=== PATIENT | female | born 1990 | race Caucasian/White ===

== ENCOUNTER 2017-10-30 18:36 | Inpatient (IN) | payer BC ==
[2017-10-30] MEDS ORDERED: Sodium Chloride 0.9% 10 ML Syringe FLUSH PRN (19:10)
[2017-10-30] MEDS ORDERED: Nalbuphine 20 MG/1 ML Amp IVPUSH PRN (19:10)
[2017-10-30] MEDS ORDERED: Ondansetron 4 MG/2 ML SDV IVPUSH PRN (19:10)
[2017-10-30] MEDS ORDERED: Lidocaine 1% 50 ML MDV INJECT ONE (19:10)
[2017-10-30] MEDS: Lactated Ringers 1,000 ML IV SCH ×4 (19:15→22:48)
[2017-10-30] MEDS ORDERED: Oxytocin/Lactated Ringers 10 UNIT/1,000 ML BAG IV SCH (19:15)
--- NOTE | 2017-10-30 19:32 | PCM.LDHP ---
L&D History of Present Illness - General Date of Service: 10/30/17 Admit Problem/Dx: Patient Status Order with Admit Dx/Problem 10/30/17 19:11 Patient Status [ADT] Routine Admission Diagnosis/Problem Admission Diagnosis/Problem 10/30/17 19:33 27 yo G1 at 37 weeks 6 days with active labor. Dates based on 15 week ultrasound. no LOF. Good FM. No vaginal bleeding. contractions for greater than 18 hours, strong contractions for the last 4 hours. GBS negative, O positive Zika exposure-Pt tested negative. elevated blood pressures in , preeclampsia labs normal. Source of Information: Patient History Limitations: Reports: No Limitations - History of Present Illness Location, : Reports: Abdomen Quality: Reports: Pressure Severity: Moderate Improves with: Reports: None Worsens with: Reports: None Past Medical History Genitourinary History: Reports: UTI, Recurrent LMP (Approximate): Social & Family History - Family History Family Medical History: Noncontributory H&P Review of Systems - Review of Systems: Review Of Systems: See Below Gastrointestinal: Reports: Abdominal Pain Genitourinary: Reports: No Symptoms L&D Exam - Exam Exam: See Below - OB Specific Contraction Intensity: Moderate to Strong Movement: Active Heart Tones: Present Heart Tones per Min: 150 Heart Rate (FHR) Variability: Moderate (6-25 bmp) Presentation: Vertex Estimated Weight: 3500 - [place] Score [place] Score Cervix Position: Anterior [place] Score Consistency: Soft [place] Score Effacement: >80% [place] Score Dilation: > 5 cm [place] Score Infant's Station: -1 ,0 [place] Score Total: 12 - Exam General: Alert, Oriented Genitourinary: Normal external exam Extremities: No Pedal Edema Skin: Warm, Dry, Intact Problem List Initiated/Reviewed/Updated: Yes Orders Last 24hrs: Active Orders 24 hr Category Date Time Status Patient Status [ADT] Routine ADT 10/30/17 19:11 Active Activity as Tolerated [RC] PFP Care 10/30/17 19:11 Active Communication Order [RC] ASDIRECTED Care 10/30/17 19:11 Active Heart Tones [RC] ASDIRECTED Care 10/30/17 19:11 Active Notify Provider [RC] PFP Care 10/30/17 19:11 Active Notify Provider [RC] PRN Care 10/30/17 19:11 Active Peripheral IV Care [RC] . DIRECTED Care 10/30/17 19:11 Active Vital Signs [RC] PER UNIT ROUTINE Care 10/30/17 19:11 Active CBC W/O DIFF,HEMOGRAM [HEME] Stat Lab 10/30/17 19:10 Ordered Lactated Ringers [Ringers, Lactated] 1,000 ml Med 10/30/17 19:15 Ordered IV ASDIRECTED Lidocaine 1% [Xylocaine 1%] Med 10/30/17 19:10 Once 20 ml INJECT ONETIME ONE Nalbuphine [Nubain] Med 10/30/17 19:10 Ordered 10 mg IVPUSH Q2H PRN Ondansetron [Zofran] Med 10/30/17 19:10 Ordered 4 mg IVPUSH Q4H PRN Oxytocin/Lactated Ringers [Pitocin in LR 10 Units/1,000 Med 10/30/17 19:15 Ordered ML] 10 unit in 1,000 ml IV .CONTINUOUS Sodium Chloride 0.9% [Saline Flush] Med 10/30/17 19:10 Ordered 10 ml FLUSH ASDIRECTED PRN Electronic Heart Tones Ext w TOCO [WOMSER] Oth 10/30/17 19:11 Ordered Routine Electronic Heart Tones Internal [WOMSER] Per Unit Oth 10/30/17 19:11 Ordered Routine Peripheral IV Insertion Adult [OM.PC] Routine Oth 10/30/17 19:11 Ordered Resuscitation Status Routine Resus Stat 10/30/17 19:10 Ordered Medication Orders Lactated Ringer's (Ringers, Lactated) 1,000 mls @ 100 mls/hr IV ASDIRECTED SU Oxytocin/Lactated Ringer's (Pitocin In Lr 10 Units/1,000 Ml) 10 unit in 1,000 mls @ 500 mls/hr IV .CONTINUOUS SU Lidocaine HCl (Xylocaine 1%) 20 ml INJECT ONETIME ONE Stop: 10/30/17 19:11 Nalbuphine HCl (Nubain) 10 mg IVPUSH Q2H PRN PRN Reason: Pain (moderate 4-6) Ondansetron HCl (Zofran) 4 mg IVPUSH Q4H PRN PRN Reason: Nausea/Vomiting Sodium Chloride (Saline Flush) 10 ml FLUSH ASDIRECTED PRN PRN Reason: Keep Vein Open Assessment/Plan Comment:: 27 yo G1 at 37 weeks 6 days gestation in active labor. Plan: Expectant management Pt prefers epidural, anesthesia has been called. GBS negative.
[2017-10-30] MEDS ORDERED: ePHEDrine 50 MG/ML SDV IVPUSH PRN (19:48)
[2017-10-30] MEDS ORDERED: diphenhydrAMINE 50 MG/ML SDV IVPUSH PRN (19:48)
[2017-10-30] MEDS ORDERED: fentaNYL 100 MCG/2 ML SDV EPIDUR PRN (19:48)
[2017-10-30] MEDS ORDERED: Bupivacaine/fentaNYL/NS 100 ML Bag EPIDUR SCH (20:00)
--- NOTE | 2017-10-30 20:28 | PCM.PREANE ---
Preanesthetic Assessment - Anesthesia/Transfusion/Family Hx Anesthesia History: No Prior Anesthesia Family History of Anesthesia Reaction: No Transfusion History: No Prior Transfusion(s) - Review of Systems General: No Symptoms Pulmonary: No Symptoms Cardiovascular: No Symptoms Gastrointestinal: No Symptoms Neurological: No Symptoms Other: Reports: None - Physical Assessment ASA Class: 2 Mental Status: Alert & Oriented x3 Airway Class: Mallampati = 1 Dentition: Reports: Normal Dentition Thyro-Mental Finger Breadths: 3 Mouth Opening Finger Breadths: 3 ROM/Head Extension: Full Lungs: Clear to Auscultation, Normal Respiratory Effort Cardiovascular: Regular Rate, Regular Rhythm, No Murmurs - Lab Values: Laboratory Last Values WBC 19.59 K/mm3 (3.98-10.04) H 10/30/17 19:18 RBC 4.23 M/mm3 (3.98-5.22) 10/30/17 19:18 Hgb 13.3 gm/L (11.2-15.7) 10/30/17 19:18 Hct 38.9 % (34.1-44.9) 10/30/17 19:18 MCV 92.0 fl (79.4-94.8) 10/30/17 19:18 MCH 31.4 pg (25.6-32.2) 10/30/17 19:18 MCHC 34.2 g/dl (32.2-35.5) 10/30/17 19:18 RDW Std Deviation 42.1 fL (36.4-46.3) 10/30/17 19:18 Plt Count 287 K/mm3 (182-369) 10/30/17 19:18 MPV 9.2 fl (9.4-12.3) L 10/30/17 19:18 - Allergies Allergies/Adverse Reactions: Allergies Allergy/AdvReac Type Severity Reaction Status Date / Time amoxicillin Allergy Rash Verified 10/30/17 19:55 - Anesthesia Plan Pre-Op Medication Ordered: None - Acknowledgements Anesthesia Type Planned: Epidural Pt an Appropriate Candidate for the Planned Anesthesia: Yes Alternatives and Risks of Anesthesia Discussed w Pt/Guardian: Yes Pt/Guardian Understands and Agrees with Anesthesia Plan: Yes PreAnesthesia Questionnaire Gastrointestinal History: Reports: GERD Genitourinary History: Reports: UTI, Recurrent - CURRENT (IN HOUSE) MEDS Current Meds: Current Medications Diphenhydramine HCl (Benadryl) 25 mg IVPUSH Q6H PRN PRN Reason: Itching Ephedrine Sulfate (Ephedrine Sulfate) 5 mg IVPUSH ASDIRECTED PRN PRN Reason: HYPOTENTSION Fentanyl (Sublimaze) 100 mcg EPIDUR Q3H PRN PRN Reason: PAIN Fentanyl/Bupivacaine HCl (Fentanyl/Bupivacaine/Ns 2 Mcg-0.125% 100 Ml) 100 ml EPIDUR ASDIRECTED SU Lactated Ringer's (Ringers, Lactated) 1,000 mls @ 100 mls/hr IV ASDIRECTED SU Oxytocin/Lactated Ringer's (Pitocin In Lr 10 Units/1,000 Ml) 10 unit in 1,000 mls @ 500 mls/hr IV .CONTINUOUS SU Nalbuphine HCl (Nubain) 10 mg IVPUSH Q2H PRN PRN Reason: Pain (moderate 4-6) Ondansetron HCl (Zofran) 4 mg IVPUSH Q4H PRN PRN Reason: Nausea/Vomiting Sodium Chloride (Saline Flush) 10 ml FLUSH ASDIRECTED PRN PRN Reason: Keep Vein Open Discontinued Medications Lidocaine HCl (Xylocaine 1%) 20 ml INJECT ONETIME ONE Stop: 10/30/17 19:11
[2017-10-31] MEDS: Ibuprofen 600 MG Tab PO PRN (05:30)
[2017-10-31] MEDS ORDERED: Benzocaine/Menthol 20%-0.5% Spray 56 GM Canister TOP PRN (14:53)
[2017-10-31] MEDS ORDERED: Witch Hazel Medicated Pads 100/Jar TOP PRN (14:53)
[2017-10-31] MEDS ORDERED: Acetaminophen 325 MG Tab PO PRN (14:53)
[2017-10-31] MEDS ORDERED: Docusate Sodium 100 MG Cap PO PRN (14:53)
[2017-10-31] MEDS ORDERED: Lanolin 100% Cream 7 GM Tube TOP PRN (14:53)
--- NOTE | 2017-10-31 16:38 | PCM48HPAN ---
Post Anesthesia Note - EVALUATION WITHIN 48HRS OF ANESTHETIC Vital Signs in Normal Range: Yes Patient Participated in Evaluation: Yes Respiratory Function Stable: Yes Airway Patent: Yes Cardiovascular Function Stable: Yes Hydration Status Stable: Yes Pain Control Satisfactory: Yes Nausea and Vomiting Control Satisfactory: Yes Mental Status Recovered: Yes
--- NOTE | 2017-10-31 16:40 | PCM.SN ---
- Free Text/Narrative Note: On 10/31/17 at 0315am this 27 yo G1 at 38 weeks delivered a viable male weighing 6 lbs 13 ounces via vaginal delivery to a sterile field. There was a 1st degree vaginal laceration repaired in the usual fashion with 3-0 vicryl suture. Epidural anesthesia. Apgars 5 and 8. Intact Placenta delivered psontaneously at 0319. EBL 250. Infant and mother in stable condition.
--- NOTE | 2017-10-31 16:40 | PCM.PNPP ---
- General Info Date of Service: 10/31/17 Functional Status: Reports: Pain Controlled, Tolerating Diet, Ambulating - Review of Systems General: Reports: No Symptoms Gastrointestinal: Reports: No Symptoms Genitourinary: Reports: No Symptoms - General Info Date of Service: 10/31/17 - Patient Data Vital Signs - Most Recent: Last Vital Signs Temp 37.2 C 10/30/17 19:50 Pulse 111 H 10/31/17 03:30 Resp 18 10/30/17 19:50 BP 144/127 H 10/31/17 03:30 Pulse Ox 100 10/30/17 19:50 Weight - Most Recent: 95.254 kg I&O - Last 24 Hours: Intake & Output 10/30/17 10/31/17 10/31/17 22:59 06:59 14:59 Intake Total 120 Balance 120 Lab Results - Last 24 Hours: Laboratory Results - last 24 hr 10/30/17 Range/Units 19:18 WBC 19.59 H (3.98-10.04) K/mm3 RBC 4.23 (3.98-5.22) M/mm3 Hgb 13.3 (11.2-15.7) gm/L Hct 38.9 (34.1-44.9) % MCV 92.0 (79.4-94.8) fl MCH 31.4 (25.6-32.2) pg MCHC 34.2 (32.2-35.5) g/dl RDW Std Deviation 42.1 (36.4-46.3) fL Plt Count 287 (182-369) K/mm3 MPV 9.2 L (9.4-12.3) fl Med Orders - Current: Current Medications Diphenhydramine HCl (Benadryl) 25 mg IVPUSH Q6H PRN PRN Reason: Itching Ephedrine Sulfate (Ephedrine Sulfate) 5 mg IVPUSH ASDIRECTED PRN PRN Reason: HYPOTENTSION Fentanyl (Sublimaze) 100 mcg EPIDUR Q3H PRN PRN Reason: PAIN Fentanyl/Bupivacaine HCl (Fentanyl/Bupivacaine/Ns 2 Mcg-0.125% 100 Ml) 100 ml EPIDUR ASDIRECTED SU Last Admin: 10/30/17 20:28 Dose: 100 ml Lactated Ringer's (Ringers, Lactated) 1,000 mls @ 100 mls/hr IV ASDIRECTED SU Last Admin: 10/30/17 22:48 Dose: 125 mls/hr Oxytocin/Lactated Ringer's (Pitocin In Lr 10 Units/1,000 Ml) 10 unit in 1,000 mls @ 500 mls/hr IV .CONTINUOUS SU Nalbuphine HCl (Nubain) 10 mg IVPUSH Q2H PRN PRN Reason: Pain (moderate 4-6) Ondansetron HCl (Zofran) 4 mg IVPUSH Q4H PRN PRN Reason: Nausea/Vomiting Sodium Chloride (Saline Flush) 10 ml FLUSH ASDIRECTED PRN PRN Reason: Keep Vein Open Discontinued Medications Lidocaine HCl (Xylocaine 1%) 20 ml INJECT ONETIME ONE Stop: 10/30/17 19:11 - Infant Interaction Disposition, : in Room with Family Infant Interaction: Holding Infant Feeding: Breastfed Infant; Nursed Well Support Person: - Recovery Exam Fundal Tone: Firm Fundal Level: At Umbilicus Fundal Placement: Midline Lochia Amount: Moderate Lochia Color: Rubra/Red Perineum Description: Intact, Minimal Bruising/Swelling - Exam General: Alert, Oriented Extremities: Normal Inspection, No Pedal Edema Skin: Warm, Dry - Problem List & Annotations (1) Vaginal delivery SNOMED Code(s): 613536490 Code(s): O80 - ENCOUNTER FOR FULL-TERM UNCOMPLICATED DELIVERY Status: Acute Current Visit: Yes - Problem List Review Problem List Initiated/Reviewed/Updated: Yes - My Orders Last 24 Hours: My Active Orders 10/30/17 19:10 Nalbuphine [Nubain] 10 mg IVPUSH Q2H PRN Ondansetron [Zofran] 4 mg IVPUSH Q4H PRN Sodium Chloride 0.9% [Saline Flush] 10 ml FLUSH ASDIRECTED PRN Resuscitation Status Routine 10/30/17 19:11 Patient Status [ADT] Routine Activity as Tolerated [RC] PFP Communication Order [RC] ASDIRECTED Peripheral IV Care [RC] . DIRECTED Vital Signs [RC] 04,12,20 Electronic Heart Tones Ext w TOCO [WOMSER] Routine Electronic Heart Tones Internal [WOMSER] Per Unit Routine Peripheral IV Insertion Adult [OM.PC] Routine 10/30/17 19:15 Lactated Ringers [Ringers, Lactated] 1,000 ml IV ASDIRECTED Oxytocin/Lactated Ringers [Pitocin in LR 10 Units/1,000 ML] 10 unit in 1,000 ml IV .CONTINUOUS 10/30/17 22:16 IUPC Insertion [Intrauterine Pressure Catheter Insertion] [WOMSER] Stat 10/31/17 00:15 Urinary Catheter Insertion [Insert Urinary Catheter] [OM.PC] Q24H 10/31/17 14:52 Patient Status Manage Transfer [TRANSFER] Routine 10/31/17 14:53 Activity as Tolerated [RC] PER UNIT ROUTINE Vital Signs [RC] ASDIRECTED Acetaminophen [Tylenol] 650 mg PO Q4H PRN Benzocaine/Menthol [Dermoplast Pain Relief [place]] See Dose Instructions TOP ASDIRECTED PRN Docusate Sodium [Colace] 100 mg PO BID PRN Ibuprofen [Motrin] 600 mg PO Q4H PRN Lanolin [Lansinoh HPA] See Dose Instructions TOP ASDIRECTED PRN Witch Najma [Tucks] 1 pad TOP ASDIRECTED PRN Assess Lochia [WOMSER] Per Unit Routine Assess Uterine Involution [WOMSER] Per Unit Routine Breast Pump [WOMSER] Per Unit Routine Medication Administration Instruction [OM.PC] Routine Perineal Care [OM.PC] Per Unit Routine Sitz Bath [OM.PC] Per Unit Routine 10/31/17 15:00 Heat Therapy [OM.PC] PRN 10/31/17 Breakfast Regular Diet [DIET] 11/01/17 05:00 CBC W/O DIFF,HEMOGRAM [HEME] Routine 11/01/17 15:00 Heat Therapy [OM.PC] PRN - Plan Plan:: 27 yo G1 at 37 weeks 6 days gestation in active labor. Plan: Expectant management Pt prefers epidural, anesthesia has been called. GBS negative. 10/31/17 12 hours post vaginal delivery routine care support.
[2017-10-31] MEDS ORDERED: Bupivacaine 0.25% 10 ML SDV ONE ×2 (22:22)
--- NOTE | 2017-11-01 10:02 | PCM.PNPP ---
- General Info Date of Service: 11/01/17 Functional Status: Reports: Pain Controlled, Tolerating Diet, Ambulating - Review of Systems General: Reports: No Symptoms Cardiovascular: Reports: No Symptoms Gastrointestinal: Reports: No Symptoms Musculoskeletal: Reports: Back Pain (at epidural site) Skin: Reports: No Symptoms Neurological: Reports: No Symptoms - General Info Date of Service: 11/01/17 - Patient Data Vital Signs - Most Recent: Last Vital Signs Temp 36.4 C 10/31/17 20:00 Pulse 82 10/31/17 20:00 Resp 15 10/31/17 20:00 BP 127/74 10/31/17 20:00 Pulse Ox 100 10/31/17 20:00 Weight - Most Recent: 95.254 kg I&O - Last 24 Hours: Intake & Output 10/31/17 11/01/17 11/01/17 22:59 06:59 14:59 Intake Total 240 Balance 240 Lab Results - Last 24 Hours: Laboratory Results - last 24 hr 11/01/17 Range/Units 04:30 WBC 15.34 H (3.98-10.04) K/mm3 RBC 3.37 L (3.98-5.22) M/mm3 Hgb 10.7 L (11.2-15.7) gm/L Hct 32.0 L (34.1-44.9) % MCV 95.0 H (79.4-94.8) fl MCH 31.8 (25.6-32.2) pg MCHC 33.4 (32.2-35.5) g/dl RDW Std Deviation 43.3 (36.4-46.3) fL Plt Count 214 (182-369) K/mm3 MPV 8.7 L (9.4-12.3) fl Med Orders - Current: Current Medications Acetaminophen (Tylenol) 650 mg PO Q4H PRN PRN Reason: mild pain or fever Benzocaine/Menthol (Dermoplast Pain Relief [place]) 0 gm TOP ASDIRECTED PRN PRN Reason: Perineal Comfort Measure Last Admin: 10/31/17 05:15 Dose: 1 canister Docusate Sodium (Colace) 100 mg PO BID PRN PRN Reason: Constipation Emollient Ointment (Lansinoh Hpa) 0 gm TOP ASDIRECTED PRN PRN Reason: Sore Nipples Last Admin: 10/31/17 20:38 Dose: 1 tube Ibuprofen (Motrin) 600 mg PO Q4H PRN PRN Reason: Mild pain or fever Last Admin: 10/31/17 05:30 Dose: 600 mg Witch Najma (Tucks) 1 pad TOP ASDIRECTED PRN PRN Reason: Hemorrhoid pain Last Admin: 10/31/17 05:15 Dose: 1 container Discontinued Medications Bupivacaine HCl (Sensorcaine-Mpf 0.25%) 10 ml .ROUTE .STK-MED ONE Stop: 10/31/17 22:23 Bupivacaine HCl (Sensorcaine-Mpf 0.25%) 10 ml .ROUTE .STK-MED ONE Stop: 10/31/17 22:23 Diphenhydramine HCl (Benadryl) 25 mg IVPUSH Q6H PRN PRN Reason: Itching Ephedrine Sulfate (Ephedrine Sulfate) 5 mg IVPUSH ASDIRECTED PRN PRN Reason: HYPOTENTSION Fentanyl (Sublimaze) 100 mcg EPIDUR Q3H PRN PRN Reason: PAIN Fentanyl/Bupivacaine HCl (Fentanyl/Bupivacaine/Ns 2 Mcg-0.125% 100 Ml) 100 ml EPIDUR ASDIRECTED SU Last Admin: 10/30/17 20:28 Dose: 100 ml Lactated Ringer's (Ringers, Lactated) 1,000 mls @ 100 mls/hr IV ASDIRECTED SU Last Admin: 10/30/17 22:48 Dose: 125 mls/hr Oxytocin/Lactated Ringer's (Pitocin In Lr 10 Units/1,000 Ml) 10 unit in 1,000 mls @ 500 mls/hr IV .CONTINUOUS SU Last Admin: 10/31/17 03:16 Dose: 500 mls/hr Lidocaine HCl (Xylocaine 1%) 20 ml INJECT ONETIME ONE Stop: 10/30/17 19:11 Nalbuphine HCl (Nubain) 10 mg IVPUSH Q2H PRN PRN Reason: Pain (moderate 4-6) Ondansetron HCl (Zofran) 4 mg IVPUSH Q4H PRN PRN Reason: Nausea/Vomiting Sodium Chloride (Saline Flush) 10 ml FLUSH ASDIRECTED PRN PRN Reason: Keep Vein Open - Interaction Disposition, : [place] in Room with Family Interaction: Holding Infant Feeding: Breastfed ; Nursed Well Support Person: - Recovery Exam Fundal Tone: Firm Fundal Level: 1 Fingerbreadths Below Umbilicus Fundal Placement: Midline Lochia Amount: Small Lochia Color: Rubra/Red Perineum Description: Other (see below) Other Perinuem Description: 1st degree lac with repair Episiotomy/Laceration: Approximated Bladder Status: Voiding - Exam General: Alert, Oriented Extremities: No Pedal Edema Skin: Warm, Dry, Intact - Problem List & Annotations (1) Vaginal delivery SNOMED Code(s): 772211188 Code(s): O80 - ENCOUNTER FOR FULL-TERM UNCOMPLICATED DELIVERY Status: Acute Current Visit: Yes - Problem List Review Problem List Initiated/Reviewed/Updated: Yes - My Orders Last 24 Hours: My Active Orders 10/31/17 14:53 Activity as Tolerated [RC] PER UNIT ROUTINE Vital Signs [RC] 04,12,20 Acetaminophen [Tylenol] 650 mg PO Q4H PRN Benzocaine/Menthol [Dermoplast Pain Relief [place]] See Dose Instructions TOP ASDIRECTED PRN Docusate Sodium [Colace] 100 mg PO BID PRN Ibuprofen [Motrin] 600 mg PO Q4H PRN Lanolin [Lansinoh HPA] See Dose Instructions TOP ASDIRECTED PRN Witch Najma [Tucks] 1 pad TOP ASDIRECTED PRN Assess Lochia [WOMSER] Per Unit Routine Assess Uterine Involution [WOMSER] Per Unit Routine Breast Pump [WOMSER] Per Unit Routine Medication Administration Instruction [OM.PC] Routine Perineal Care [OM.PC] Per Unit Routine Sitz Bath [OM.PC] Per Unit Routine 10/31/17 15:00 Heat Therapy [OM.PC] PRN 11/01/17 15:00 Heat Therapy [OM.PC] PRN - Plan Plan:: 27 yo G1 at 37 weeks 6 days gestation in active labor. Plan: Expectant management Pt prefers epidural, anesthesia has been called. GBS negative. 10/31/17 12 hours post vaginal delivery routine care support. 11/01/17 27 yo G1 at PPD #1 s/p nvd with 1st degree laceration continue support. anticipate d/c to home tomorrow.
[2017-11-01] MEDS: Ibuprofen 600 MG Tab PO PRN (13:22)
--- NOTE | 2017-11-02 07:34 | PCM.DCSUM1 ---
Discharge Summary - Hospital Course Free Text/Narrative:: 27 yo at PPD #2 s/p NVD with 1st degree vaginal laceration. pain controlled, normal lochia, No concerns per pt or nursing staff. Discharge to home today follow up in 6-8 weeks - Discharge Data Discharge Date: 11/02/17 Discharge Disposition: Home, Self-Care 01 Condition: Good - Discharge Diagnosis/Problem(s) (1) Vaginal delivery SNOMED Code(s): 860179055 ICD Code: O80 - ENCOUNTER FOR FULL-TERM UNCOMPLICATED DELIVERY Status: Acute Current Visit: Yes - Patient Instructions Diet: Heart Healthy Diet, Usual Diet as Tolerated Activity: As Tolerated Driving: May Drive Today Showering/Bathing: May Shower Notify Provider of: Fever, Increased Pain, Swelling and Redness, Drainage, Nausea and/or Vomiting Other/Special Instructions: Pelvic rest (no intercourse) for 6 weeks. Call clinic [phone] for any concerns - Discharge Plan Home Medications: Home Meds Ascorbic Acid [Vitamin C] 500 mg PO DAILY 10/30/17 [History] Cholecalciferol (Vitamin D3) [Vitamin D3] 1,000 unit PO DAILY 10/30/17 [History] Nitrofurantoin [place]/Macrocryst [Macrobid] 100 mg PO BEDTIME 10/30/17 [History] Pnv No.122/Iron/Folic Acid [ Multi Tablet] 1 each PO DAILY 10/30/17 [ History] Patient Handouts: Vaginal Delivery, Care After, Breast Pumping Tips, Easy-to- Read, Challenges and Solutions Referrals: Nuvia Reynaga MD [Primary Care Provider] - (6-8 weeks ) - Discharge Summary/Plan Comment DC Time >30 min.: No - Patient Data Vitals - Most Recent: Last Vital Signs Temp 37.1 C 11/02/17 04:00 Pulse 65 11/02/17 04:00 Resp 14 11/02/17 04:00 BP 133/65 11/02/17 04:00 Pulse Ox 100 11/02/17 04:00 Weight - Most Recent: 95.254 kg I&O - Last 24 hours: Intake & Output 11/01/17 11/02/17 11/02/17 22:59 06:59 14:59 Intake Total 320 Balance 320 Med Orders - Current: Current Medications Acetaminophen (Tylenol) 650 mg PO Q4H PRN PRN Reason: mild pain or fever Benzocaine/Menthol (Dermoplast Pain Relief [place]) 0 gm TOP ASDIRECTED PRN PRN Reason: Perineal Comfort Measure Last Admin: 10/31/17 05:15 Dose: 1 canister Docusate Sodium (Colace) 100 mg PO BID PRN PRN Reason: Constipation Emollient Ointment (Lansinoh Hpa) 0 gm TOP ASDIRECTED PRN PRN Reason: Sore Nipples Last Admin: 10/31/17 20:38 Dose: 1 tube Ibuprofen (Motrin) 600 mg PO Q4H PRN PRN Reason: Mild pain or fever Last Admin: 11/01/17 13:22 Dose: 600 mg Witch Najma (Tucks) 1 pad TOP ASDIRECTED PRN PRN Reason: Hemorrhoid pain Last Admin: 10/31/17 05:15 Dose: 1 container Discontinued Medications Bupivacaine HCl (Sensorcaine-Mpf 0.25%) 10 ml .ROUTE .STK-MED ONE Stop: 10/31/17 22:23 Bupivacaine HCl (Sensorcaine-Mpf 0.25%) 10 ml .ROUTE .STK-MED ONE Stop: 10/31/17 22:23 Diphenhydramine HCl (Benadryl) 25 mg IVPUSH Q6H PRN PRN Reason: Itching Ephedrine Sulfate (Ephedrine Sulfate) 5 mg IVPUSH ASDIRECTED PRN PRN Reason: HYPOTENTSION Fentanyl (Sublimaze) 100 mcg EPIDUR Q3H PRN PRN Reason: PAIN Fentanyl/Bupivacaine HCl (Fentanyl/Bupivacaine/Ns 2 Mcg-0.125% 100 Ml) 100 ml EPIDUR ASDIRECTED SU Last Admin: 10/30/17 20:28 Dose: 100 ml Lactated Ringer's (Ringers, Lactated) 1,000 mls @ 100 mls/hr IV ASDIRECTED SU Last Admin: 10/30/17 22:48 Dose: 125 mls/hr Oxytocin/Lactated Ringer's (Pitocin In Lr 10 Units/1,000 Ml) 10 unit in 1,000 mls @ 500 mls/hr IV .CONTINUOUS SU Last Admin: 10/31/17 03:16 Dose: 500 mls/hr Lidocaine HCl (Xylocaine 1%) 20 ml INJECT ONETIME ONE Stop: 10/30/17 19:11 Last Admin: 11/01/17 18:03 Dose: Not Given Nalbuphine HCl (Nubain) 10 mg IVPUSH Q2H PRN PRN Reason: Pain (moderate 4-6) Ondansetron HCl (Zofran) 4 mg IVPUSH Q4H PRN PRN Reason: Nausea/Vomiting Sodium Chloride (Saline Flush) 10 ml FLUSH ASDIRECTED PRN PRN Reason: Keep Vein Open *Q Meaningful Use (DIS) - VTE *Q VTE Criteria *Q: - Stroke *Q Stroke Criteria *Q: - AMI *Q AMI Criteria *Q: - General Info Date of Service: 11/02/17 - Patient Data Vital Signs - Most Recent: Last Vital Signs Temp 37.1 C 11/02/17 04:00 Pulse 65 11/02/17 04:00 Resp 14 11/02/17 04:00 BP 133/65 11/02/17 04:00 Pulse Ox 100 11/02/17 04:00 Weight - Most Recent: 95.254 kg I&O - Last 24 Hours: Intake & Output 11/01/17 11/02/17 11/02/17 22:59 06:59 14:59 Intake Total 320 Balance 320 Med Orders - Current: Current Medications Acetaminophen (Tylenol) 650 mg PO Q4H PRN PRN Reason: mild pain or fever Benzocaine/Menthol (Dermoplast Pain Relief [place]) 0 gm TOP ASDIRECTED PRN PRN Reason: Perineal Comfort Measure Last Admin: 10/31/17 05:15 Dose: 1 canister Docusate Sodium (Colace) 100 mg PO BID PRN PRN Reason: Constipation Emollient Ointment (Lansinoh Hpa) 0 gm TOP ASDIRECTED PRN PRN Reason: Sore Nipples Last Admin: 10/31/17 20:38 Dose: 1 tube Ibuprofen (Motrin) 600 mg PO Q4H PRN PRN Reason: Mild pain or fever Last Admin: 11/01/17 13:22 Dose: 600 mg Witch Najma (Tucks) 1 pad TOP ASDIRECTED PRN PRN Reason: Hemorrhoid pain Last Admin: 10/31/17 05:15 Dose: 1 container Discontinued Medications Bupivacaine HCl (Sensorcaine-Mpf 0.25%) 10 ml .ROUTE .STK-MED ONE Stop: 10/31/17 22:23 Bupivacaine HCl (Sensorcaine-Mpf 0.25%) 10 ml .ROUTE .STK-MED ONE Stop: 10/31/17 22:23 Diphenhydramine HCl (Benadryl) 25 mg IVPUSH Q6H PRN PRN Reason: Itching Ephedrine Sulfate (Ephedrine Sulfate) 5 mg IVPUSH ASDIRECTED PRN PRN Reason: HYPOTENTSION Fentanyl (Sublimaze) 100 mcg EPIDUR Q3H PRN PRN Reason: PAIN Fentanyl/Bupivacaine HCl (Fentanyl/Bupivacaine/Ns 2 Mcg-0.125% 100 Ml) 100 ml EPIDUR ASDIRECTED SU Last Admin: 10/30/17 20:28 Dose: 100 ml Lactated Ringer's (Ringers, Lactated) 1,000 mls @ 100 mls/hr IV ASDIRECTED SU Last Admin: 10/30/17 22:48 Dose: 125 mls/hr Oxytocin/Lactated Ringer's (Pitocin In Lr 10 Units/1,000 Ml) 10 unit in 1,000 mls @ 500 mls/hr IV .CONTINUOUS SU Last Admin: 10/31/17 03:16 Dose: 500 mls/hr Lidocaine HCl (Xylocaine 1%) 20 ml INJECT ONETIME ONE Stop: 10/30/17 19:11 Last Admin: 11/01/17 18:03 Dose: Not Given Nalbuphine HCl (Nubain) 10 mg IVPUSH Q2H PRN PRN Reason: Pain (moderate 4-6) Ondansetron HCl (Zofran) 4 mg IVPUSH Q4H PRN PRN Reason: Nausea/Vomiting Sodium Chloride (Saline Flush) 10 ml FLUSH ASDIRECTED PRN PRN Reason: Keep Vein Open - Interaction Infant Disposition, : [place] in Room with Family Interaction: Holding Infant Feeding: Breastfed ; Nursed Well Support Person: - Recovery Exam Fundal Tone: Firm Fundal Level: At Umbilicus Fundal Placement: Midline Lochia Amount: Scant Lochia Color: Rubra/Red Perineum Description: Other (see below) Other Perinuem Description: 1st degree laceration with repair Episiotomy/Laceration: Approximated Bladder Status: Voiding - Exam General: Alert, Oriented Extremities: No Pedal Edema Skin: Warm, Dry
== END 2017-11-02 10:01 | disposition home or self-care (01) | DRG 560 ==
LOC: JD.OB 18:36 → JD.OBCHECK 18:36 → JD.OB 19:11 → OBSVTOIN 10-31 03:15
PROVIDERS: ADMIT Family Medicine; ATTEND Family Medicine
PROC: 10E0XZZ Delivery of Products of Conception, External Approach (ICD-10-PCS; principal; 2017-10-31)
PROC: 0HQ9XZZ Repair Perineum Skin, External Approach (ICD-10-PCS; 2017-10-31)
PROC: 00HU33Z Insertion of Infusion Device into Spinal Canal, Percutaneous Approach (ICD-10-PCS; 2017-10-31)
PROC: 3E0R3BZ Introduction of Anesthetic Agent into Spinal Canal, Percutaneous Approach (ICD-10-PCS; 2017-10-31)
DX: O70.0 First degree perineal laceration during delivery (principal); Z3A.38 38 weeks gestation of pregnancy; Z37.0 Single live birth; O69.81X0 Labor and delivery complicated by cord around neck, without compression, not applicable or unspecified
CPT/HCPCS: 36415; 51702; 59300; 59409; 85027; A9270-GY; J2590; J7120

== ENCOUNTER 2019-12-26 09:38 | Inpatient (IN) | payer BC ==
[~2019-12-26 09:38] MED LIST: Bupivacaine 0.25% 10 ML SDV ONE
[2019-12-26] MEDS ORDERED: Sodium Chloride 0.9% 10 ML Syringe FLUSH PRN (10:02)
[2019-12-26] MEDS ORDERED: Nalbuphine 10 MG/ML Syringe IVPUSH PRN (10:02)
[2019-12-26] MEDS ORDERED: Ondansetron 4 MG/2 ML SDV IVPUSH PRN (10:02)
[2019-12-26] MEDS ORDERED: Oxytocin/Lactated Ringers 10 UNIT/1,000 ML BAG IV SCH ×2 (10:15)
[2019-12-26] MEDS: Lactated Ringers 1,000 ML IV SCH ×2 (10:25→13:33)
--- NOTE | 2019-12-26 12:16 | PCM.LDHP ---
L&D History of Present Illness - General Date of Service: 12/26/19 Admit Problem/Dx: Patient Status Order with Admit Dx/Problem 12/26/19 10:02 Patient Status [ADT] Routine Admission Diagnosis/Problem Admission Diagnosis/Problem Normal Source of Information: Patient History Limitations: Reports: No Limitations - History of Present Illness Introduction:: 29 y/o at 39 1/7 wks who presents for elective IOL. Doing well. No contractions. No LOF. 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 Para: 1 LMP (Approximate): Psychiatric History: Reports: Depression - Past Surgical History HEENT Surgical History: Reports: Oral Surgery Musculoskeletal Surgical History: Reports: Arthroscopic Knee, Other (See Below) Other Musculoskeletal Surgeries/Procedures:: Bunionectomy Social & Family History - Family History Family Medical History: Noncontributory - Tobacco Use Smoking Status *Q: Never Smoker - Caffeine Use Caffeine Use: Reports: None Other Caffeine Use: daily - Alcohol Use Alcohol Use History: No - Recreational Drug Use Recreational Drug Use: No H&P Review of Systems - Review of Systems: Review Of Systems: See Below General: Reports: No Symptoms Pulmonary: Reports: No Symptoms Cardiovascular: Reports: No Symptoms Gastrointestinal: Reports: No Symptoms Genitourinary: Reports: No Symptoms Musculoskeletal: Reports: No Symptoms Psychiatric: Reports: No Symptoms Neurological: Reports: No Symptoms L&D Exam - Exam Exam: See Below - Vital Signs Vital Signs: Last Vital Signs Temp 36.6 C 12/26/19 09:51 Pulse 104 H 12/26/19 09:51 Resp 16 12/26/19 09:51 BP 123/75 12/26/19 09:51 Pulse Ox 100 12/26/19 09:51 Weight: 94.211 kg - OB Specific Contraction Intensity: Mild Movement: Active Heart Tones: Present Heart Tones per Min: 145 Heart Rate (FHR) Variability: Moderate (6-25 bmp) Presentation: Vertex - [place] Score Houston Score Cervix Position: Posterior [place] Score Consistency: Soft [place] Score Effacement: >80% [place] Score Dilation: 3-4 cm [place] Score 's Station: -2 [place] Score Total: 8 - Exam General: Alert, Oriented, Cooperative Lungs: Clear to Auscultation, Normal Respiratory Effort Cardiovascular: Regular Rate, Regular Rhythm GI/Abdominal Exam: Soft, Non-Tender Genitourinary: Normal external exam Extremities: Normal Inspection Skin: Warm, Dry, Intact - Patient Data Lab Results Last 24 hrs: Laboratory Results - last 24 hr 12/26/19 12/26/19 Range/Units 10:15 10:15 WBC 9.31 (3.98-10.04) K/mm3 RBC 3.92 L (3.98-5.22) M/mm3 Hgb 12.3 D (11.2-15.7) gm/dl Hct 37.5 (34.1-44.9) % MCV 95.7 H (79.4-94.8) fl MCH 31.4 (25.6-32.2) pg MCHC 32.8 (32.2-35.5) g/dl RDW Std Deviation 43.0 (36.4-46.3) fL Plt Count 250 (182-369) K/mm3 MPV 9.4 (9.4-12.3) fl Blood Type O POSITIVE Gel Antibody Screen Negative Result Diagrams: 12/26/19 10:15 - Problem List (1) 39 weeks gestation of SNOMED Code(s): 67360549 ICD Code: Z3A.39 - 39 WEEKS GESTATION OF Status: Acute Current Visit: Yes Problem List Initiated/Reviewed/Updated: Yes Orders Last 24hrs: Active Orders 24 hr Category Date Time Status Patient Status [ADT] Routine ADT 12/26/19 10:02 Active Activity as Tolerated [RC] PFP Care 12/26/19 10:02 Active Communication Order [RC] ASDIRECTED Care 12/26/19 10:02 Active Communication Order [RC] ASDIRECTED Care 12/26/19 10:02 Active Communication Order [RC] ASDIRECTED Care 12/26/19 10:02 Active Heart Tones [RC] ASDIRECTED Care 12/26/19 10:03 Active Monitoring [RC] INTERMITTENT Care 12/26/19 10:02 Active Non Stress Test [RC] PER UNIT ROUTINE Care 12/26/19 10:02 Active Notify Provider [RC] ASDIRECTED Care 12/26/19 10:02 Active Notify Provider [RC] PRN Care 12/26/19 10:02 Active Peripheral IV Care [RC] . DIRECTED Care 12/26/19 10:03 Active Vaginal Exam [RC] ASDIRECTED Care 12/26/19 10:02 Active Vital Signs [RC] ASDIRECTED Care 12/26/19 10:02 Active Vital Signs [RC] PER UNIT ROUTINE Care 12/26/19 10:02 Active Regular Diet [DIET] Diet 12/26/19 Breakfast Active PATIENT RETYPE [BBK] Routine Lab 12/26/19 11:22 Ordered RAPID PLASMA REAGIN,RPR [CHEM] Routine Lab 12/26/19 10:15 Received Lactated Ringers [Ringers, Lactated] 1,000 ml Med 12/26/19 10:15 Active IV ASDIRECTED Ondansetron [Zofran] Med 12/26/19 10:02 Active 4 mg IVPUSH Q4H PRN Oxytocin/Lactated Ringers [Pitocin in LR 10 Units/1,000 Med 12/26/19 10:15 Active ML] 10 unit in 1,000 ml IV .CONTINUOUS Oxytocin/Lactated Ringers [Pitocin in LR 10 Units/1,000 Med 12/26/19 10:15 Active ML] 10 unit in 1,000 ml IV TITRATE Sodium Chloride 0.9% [Saline Flush] Med 12/26/19 10:02 Active 10 ml FLUSH ASDIRECTED PRN Electronic Heart Tones Ext w TOCO [WOMSER] Oth 12/26/19 10:02 Ordered Routine Electronic Heart Tones Internal [WOMSER] Per Unit Oth 12/26/19 10:02 Ordered Routine Peripheral IV Insertion Adult [OM.PC] Routine Oth 12/26/19 10:02 Ordered Resuscitation Status Routine Resus Stat 12/26/19 10:02 Ordered Medication Orders Lactated Ringer's (Ringers, Lactated) 1,000 mls @ 40 mls/hr IV ASDIRECTED SU Last Admin: 12/26/19 10:25 Dose: 40 mls/hr Oxytocin/Lactated Ringer's (Pitocin In Lr 10 Units/1,000 Ml) 10 unit in 1,000 mls @ 12 mls/hr IV TITRATE SU; Protocol Last Titration: 12/26/19 10:53 Dose: 4 munits/min, 24 mls/hr Admin: 12/26/19 10:24 Dose: 2 munits/min, 12 mls/hr Oxytocin/Lactated Ringer's (Pitocin In Lr 10 Units/1,000 Ml) 10 unit in 1,000 mls @ 500 mls/hr IV .CONTINUOUS SU Ondansetron HCl (Zofran) 4 mg IVPUSH Q4H PRN PRN Reason: Nausea/Vomiting Sodium Chloride (Saline Flush) 10 ml FLUSH ASDIRECTED PRN PRN Reason: Keep Vein Open Assessment/Plan Comment:: 29 y/o at 39 1/7 wks presents for IOL * Labs already drawn * GBS negative * Pitocin at 6, AROM performed. Continue present management * Pain management per patient preference * Anticipate
[2019-12-26] MEDS ORDERED: diphenhydrAMINE 50 MG/ML SDV IVPUSH PRN (12:42)
[2019-12-26] MEDS ORDERED: Bupivacaine/fentaNYL/NS 100 ML Bag EPIDUR PRN (12:42)
[2019-12-26] MEDS ORDERED: ePHEDrine 50 MG/ML SDV IVPUSH PRN (12:42)
[2019-12-26] MEDS ORDERED: fentaNYL 100 MCG/2 ML SDV EPIDUR PRN (12:42)
--- NOTE | 2019-12-26 15:43 | PCM.DEL ---
L & D Note - General Info Date of Service: 12/26/19 - Delivery Note Labor: Induced by ARM, Induced by Oxytocin Cervical Ripening Method: Oxytocin Delivery Outcome: Livebirth Delivery Method: Spontaneous Vaginal Delivery-Single Infant Delivery Mode: Vacuum Extraction Presentation: Right Occiput Anterior (RODDY) Nuchal Cord: None Anesthesia Type: Epidural Amniotic Fluid Description: Clear Episiotomy Type: None Laceration: None Placenta: Intact, Spontaneous Cord: 3 Vessels Estimated Blood Loss: 200 [place]: Bulb Syringe, Stimulated, Warmed, [place] Used, Warmer Used Delivery Comments (Free Text/Narrative):: The patient was pushing in the dorsal lithotomy position. Sterile vaginal exam complete/complete/+3 station. head in RODDY presentation. Maternal pushing effort was good and the pelvis was felt to be adequate for an instrument assisted delivery. Given terminal bradycardia in the 60-70's lasting for about 6 minutes the decision was made to proceed with vacuum assisted vaginal delivery. The mushroom cup was placed without difficulty with care to avoid the vaginal side tamayo. Subsequent vacuum assisted vaginal delivery with pushing over 1 contraction. Total pressure applied 550 mm Hg. Total pop offs 0. Suction was removed following delivery of the head. No nuchal cord. The remainder of the infant delivered without difficulty. placed on maternal abdomen. Cord clamped and cut. Cord blood obtained. Placenta allowed time to separate and expelled intact. Inspection of the perineum following delivery with no laceration. Vacuum Extractor Progress Note - Alternative Labor Strategies Considered Alternative Labor Strategies Considered:: Reports: Yes Indications Considered:: Reports: Yes Indications:: Reports: Suspicion of Immediate or Potential Compromise Time Out:: Reports: Yes - Patient Prepared Patient Prepared:: Reports: Yes Informed Consent:: Reports: Verbal Risks: Reports: Yes Risks Include:: Reports: Laceration, Shoulder Dystocia, Maternal Injury Anesthesia/Analgesia Adequate:: Reports: Yes - Probability of Success High Probability of Success:: Reports: Yes Weight Estimated:: Reports: AGA Patient Diabetic:: Reports: No Pelvis Adequate:: Reports: Yes Position:: RODDY Asynclitic:: Reports: No Station:: +3 - Application Time Maximum Application Time & Number of Pop-Offs Predetermined:: Reports: Yes Maximum Pressure Maintained in [place] (cm Hg):: 550 Total Application Time (min): *max=20min: 1 Number of Times Cup Disengaged:: 0 Type of Vacuum Used:: Reports: Cup: Mushroom type Vacuum Extraction: Successful - Exit Strategy Exit strategy available:: Reports: Yes and resuscitation teams readily available:: Reports: Yes - General Info Date of Service: 12/26/19 - Patient Data Vitals - Most Recent: Last Vital Signs Temp 36.6 C 12/26/19 09:51 Pulse 104 H 12/26/19 09:51 Resp 16 12/26/19 09:51 BP 123/75 12/26/19 09:51 Pulse Ox 100 12/26/19 09:51 Weight - Most Recent: 94.211 kg I&O - Last 24 Hours: Intake & Output 12/26/19 12/26/19 12/26/19 06:59 14:59 22:59 Intake Total 1500 Balance 1500 Lab Results Last 24 Hours: Laboratory Results - last 24 hr 12/26/19 12/26/19 Range/Units 10:15 10:15 WBC 9.31 (3.98-10.04) K/mm3 RBC 3.92 L (3.98-5.22) M/mm3 Hgb 12.3 D (11.2-15.7) gm/dl Hct 37.5 (34.1-44.9) % MCV 95.7 H (79.4-94.8) fl MCH 31.4 (25.6-32.2) pg MCHC 32.8 (32.2-35.5) g/dl RDW Std Deviation 43.0 (36.4-46.3) fL Plt Count 250 (182-369) K/mm3 MPV 9.4 (9.4-12.3) fl Blood Type O POSITIVE Gel Antibody Screen Negative Med Orders - Current: Current Medications Diphenhydramine HCl (Benadryl) 25 mg IVPUSH Q6H PRN PRN Reason: pruritis Ephedrine Sulfate (Ephedrine Sulfate) 5 mg IVPUSH ASDIRECTED PRN PRN Reason: Hypotension Fentanyl (Sublimaze) 100 mcg EPIDUR Q3H PRN PRN Reason: Pain Last Admin: 12/26/19 12:58 Dose: 100 mcg Fentanyl/Bupivacaine HCl (Fentanyl/Bupivacaine/Ns 2 Mcg-0.125% 100 Ml) 100 ml EPIDUR ASDIRECTED PRN PRN Reason: Pain Last Admin: 12/26/19 12:58 Dose: 100 ml Lactated Ringer's (Ringers, Lactated) 1,000 mls @ 40 mls/hr IV ASDIRECTED SU Last Admin: 12/26/19 13:33 Dose: 40 mls/hr Oxytocin/Lactated Ringer's (Pitocin In Lr 10 Units/1,000 Ml) 10 unit in 1,000 mls @ 12 mls/hr IV TITRATE SU; Protocol Last Titration: 12/26/19 14:02 Dose: 500 mls/hr Oxytocin/Lactated Ringer's (Pitocin In Lr 10 Units/1,000 Ml) 10 unit in 1,000 mls @ 500 mls/hr IV .CONTINUOUS SU Ondansetron HCl (Zofran) 4 mg IVPUSH Q4H PRN PRN Reason: Nausea/Vomiting Sodium Chloride (Saline Flush) 10 ml FLUSH ASDIRECTED PRN PRN Reason: Keep Vein Open Discontinued Medications Nalbuphine HCl (Nubain) 10 mg IVPUSH Q2H PRN PRN Reason: Pain - Problem List & Annotations (1) 39 weeks gestation of SNOMED Code(s): 02159109 Code(s): Z3A.39 - 39 WEEKS GESTATION OF Status: Acute Current Visit: Yes (2) Vaginal delivery SNOMED Code(s): 622769300 Code(s): O80 - ENCOUNTER FOR FULL-TERM UNCOMPLICATED DELIVERY Status: Acute Current Visit: No - Problem List Review Problem List Initiated/Reviewed/Updated: Yes - My Orders Last 24 Hours: My Active Orders 12/26/19 10:02 Patient Status [ADT] Routine Activity as Tolerated [RC] PFP Communication Order [RC] ASDIRECTED Communication Order [RC] ASDIRECTED Communication Order [RC] ASDIRECTED Monitoring [RC] INTERMITTENT Non Stress Test [RC] PER UNIT ROUTINE Notify Provider [RC] ASDIRECTED Notify Provider [RC] PRN Vaginal Exam [RC] ASDIRECTED Vital Signs [RC] ASDIRECTED Vital Signs [RC] PER UNIT ROUTINE Ondansetron [Zofran] 4 mg IVPUSH Q4H PRN Sodium Chloride 0.9% [Saline Flush] 10 ml FLUSH ASDIRECTED PRN Electronic Heart Tones Ext w TOCO [WOMSER] Routine Electronic Heart Tones Internal [WOMSER] Per Unit Routine Peripheral IV Insertion Adult [OM.PC] Routine Resuscitation Status Routine 12/26/19 10:03 Heart Tones [RC] ASDIRECTED Peripheral IV Care [RC] . DIRECTED 12/26/19 10:15 RAPID PLASMA REAGIN,RPR [CHEM] Routine Lactated Ringers [Ringers, Lactated] 1,000 ml IV ASDIRECTED Oxytocin/Lactated Ringers [Pitocin in LR 10 Units/1,000 ML] 10 unit in 1,000 ml IV .CONTINUOUS Oxytocin/Lactated Ringers [Pitocin in LR 10 Units/1,000 ML] 10 unit in 1,000 ml IV TITRATE 12/26/19 11:22 PATIENT RETYPE [BBK] Routine 12/26/19 15:41 Patient Status Manage Transfer [TRANSFER] Routine 12/26/19 Breakfast Regular Diet [DIET] - Assessment Assessment:: 29 y/o PPD#0 from - Plan Plan:: * Routine cares * Breast feeding * Discharge home in 1-2 days
[2019-12-26] MEDS ORDERED: Docusate Sodium 100 MG Cap PO PRN (15:44)
[2019-12-26] MEDS ORDERED: Benzocaine/Menthol 20%-0.5% Spray 56 GM Canister TOP PRN (15:44)
[2019-12-26] MEDS ORDERED: Ibuprofen 600 MG Tab PO PRN (15:44)
[2019-12-26] MEDS ORDERED: Witch Hazel Medicated Pads 40/Jar TOP PRN (15:44)
[2019-12-26] MEDS ORDERED: Acetaminophen 325 MG Tab PO PRN (15:44)
--- NOTE | 2019-12-27 02:00 | PCM.PREANE ---
Preanesthetic Assessment - Anesthesia/Transfusion/Family Hx Anesthesia History: Prior Anesthesia Without Reaction Family History of Anesthesia Reaction: No Transfusion History: No Prior Transfusion(s) - Review of Systems General: No Symptoms Pulmonary: No Symptoms Cardiovascular: No Symptoms Gastrointestinal: No Symptoms Neurological: No Symptoms Other: Reports: None - Physical Assessment Vital Signs: Last Vital Signs Temp 36.6 C 12/26/19 21:15 Pulse 73 12/26/19 21:15 Resp 16 12/26/19 21:15 BP 139/84 12/26/19 21:15 Pulse Ox 99 12/26/19 21:15 Height: 1.83 m Weight: 94.211 kg ASA Class: 2 Mental Status: Alert & Oriented x3 Airway Class: Mallampati = 1 Dentition: Reports: Normal Dentition Thyro-Mental Finger Breadths: 3 Mouth Opening Finger Breadths: 3 ROM/Head Extension: Full Lungs: Clear to Auscultation, Normal Respiratory Effort Cardiovascular: Regular Rate, Regular Rhythm - Lab Values: Laboratory Last Values WBC 9.31 K/mm3 (3.98-10.04) 12/26/19 10:15 RBC 3.92 M/mm3 (3.98-5.22) L 12/26/19 10:15 Hgb 12.3 gm/dl (11.2-15.7) D 12/26/19 10:15 Hct 37.5 % (34.1-44.9) 12/26/19 10:15 MCV 95.7 fl (79.4-94.8) H 12/26/19 10:15 MCH 31.4 pg (25.6-32.2) 12/26/19 10:15 MCHC 32.8 g/dl (32.2-35.5) 12/26/19 10:15 RDW Std Deviation 43.0 fL (36.4-46.3) 12/26/19 10:15 Plt Count 250 K/mm3 (182-369) 12/26/19 10:15 MPV 9.4 fl (9.4-12.3) 12/26/19 10:15 RPR Non-reactive (NONREACTIVE) 12/26/19 10:15 Blood Type O POSITIVE 12/26/19 10:15 Gel Antibody Screen Negative 12/26/19 10:15 - Allergies Allergies/Adverse Reactions: Allergies Allergy/AdvReac Type Severity Reaction Status Date / Time amoxicillin Allergy Rash Verified 12/26/19 09:52 - Acknowledgements Anesthesia Type Planned: Epidural Pt an Appropriate Candidate for the Planned Anesthesia: Yes Alternatives and Risks of Anesthesia Discussed w Pt/Guardian: Yes Pt/Guardian Understands and Agrees with Anesthesia Plan: Yes PreAnesthesia Questionnaire Gastrointestinal History: Reports: GERD Genitourinary History: Reports: UTI, 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: Psychiatric History: Reports: Depression - Past Surgical History HEENT Surgical History: Reports: Oral Surgery Musculoskeletal Surgical History: Reports: Arthroscopic Knee, Other (See Below) Other Musculoskeletal Surgeries/Procedures:: Bunionectomy - SUBSTANCE USE Smoking Status *Q: Never Smoker Recreational Drug Use History: No - HOME MEDS Home Medications: Home Meds No122/Iron/Folic Acid [ Multi Tablet] 1 each PO DAILY 10/30/17 [History] Sertraline [Zoloft] 50 mg PO DAILY 06/21/19 [History] Nitrofurantoin Monohyd/M-Cryst [Macrobid 100 mg Capsule] 100 mg PO BEDTIME 11/17 [History] - CURRENT (IN HOUSE) MEDS Current Meds: Current Medications Acetaminophen (Tylenol) 650 mg PO Q4H PRN PRN Reason: mild pain or fever Benzocaine/Menthol (Dermoplast Pain Relief [place]) 0 gm TOP ASDIRECTED PRN PRN Reason: Perineal Comfort Measure Last Admin: 12/26/19 16:46 Dose: 1 applic Docusate Sodium (Colace) 100 mg PO BID PRN PRN Reason: Constipation Ibuprofen (Motrin) 600 mg PO Q6H PRN PRN Reason: Mild pain or fever Witch Najma (Tucks) 1 pad TOP ASDIRECTED PRN PRN Reason: Perineal Comfort Measure Last Admin: 12/26/19 16:46 Dose: 1 applic Discontinued Medications Diphenhydramine HCl (Benadryl) 25 mg IVPUSH Q6H PRN PRN Reason: pruritis Ephedrine Sulfate (Ephedrine Sulfate) 5 mg IVPUSH ASDIRECTED PRN PRN Reason: Hypotension Fentanyl (Sublimaze) 100 mcg EPIDUR Q3H PRN PRN Reason: Pain Last Admin: 12/26/19 12:58 Dose: 100 mcg Fentanyl/Bupivacaine HCl (Fentanyl/Bupivacaine/Ns 2 Mcg-0.125% 100 Ml) 100 ml EPIDUR ASDIRECTED PRN PRN Reason: Pain Last Admin: 12/26/19 12:58 Dose: 100 ml Lactated Ringer's (Ringers, Lactated) 1,000 mls @ 40 mls/hr IV ASDIRECTED SU Last Admin: 12/26/19 13:33 Dose: 40 mls/hr Oxytocin/Lactated Ringer's (Pitocin In Lr 10 Units/1,000 Ml) 10 unit in 1,000 mls @ 12 mls/hr IV TITRATE SU; Protocol Last Titration: 12/26/19 14:02 Dose: 500 mls/hr Oxytocin/Lactated Ringer's (Pitocin In Lr 10 Units/1,000 Ml) 10 unit in 1,000 mls @ 500 mls/hr IV .CONTINUOUS SU Nalbuphine HCl (Nubain) 10 mg IVPUSH Q2H PRN PRN Reason: Pain Ondansetron HCl (Zofran) 4 mg IVPUSH Q4H PRN PRN Reason: Nausea/Vomiting Sodium Chloride (Saline Flush) 10 ml FLUSH ASDIRECTED PRN PRN Reason: Keep Vein Open
--- NOTE | 2019-12-27 07:18 | PCM.PNPP ---
- General Info Date of Service: 12/27/19 Functional Status: Reports: Pain Controlled, Tolerating Diet, Ambulating, Urinating - Review of Systems General: Reports: No Symptoms Pulmonary: Reports: No Symptoms Cardiovascular: Reports: No Symptoms Gastrointestinal: Reports: No Symptoms Genitourinary: Reports: No Symptoms Musculoskeletal: Reports: No Symptoms Neurological: Reports: No Symptoms - Patient Data Vital Signs - Most Recent: Last Vital Signs Temp 36.6 C 12/27/19 03:56 Pulse 65 12/27/19 03:56 Resp 18 12/27/19 03:56 BP 127/85 12/27/19 03:56 Pulse Ox 100 12/27/19 03:56 Weight - Most Recent: 94.211 kg I&O - Last 24 Hours: Intake & Output 12/26/19 12/27/19 12/27/19 22:59 06:59 14:59 Intake Total 1000 Balance 1000 Lab Results - Last 24 Hours: Laboratory Results - last 24 hr 12/26/19 12/26/19 12/26/19 Range/Units 10:15 10:15 10:15 WBC 9.31 (3.98-10.04) K/mm3 RBC 3.92 L (3.98-5.22) M/mm3 Hgb 12.3 D (11.2-15.7) gm/dl Hct 37.5 (34.1-44.9) % MCV 95.7 H (79.4-94.8) fl MCH 31.4 (25.6-32.2) pg MCHC 32.8 (32.2-35.5) g/dl RDW Std Deviation 43.0 (36.4-46.3) fL Plt Count 250 (182-369) K/mm3 MPV 9.4 (9.4-12.3) fl RPR Non-reactive (NONREACTIVE) Blood Type O POSITIVE Gel Antibody Screen Negative Med Orders - Current: Current Medications Acetaminophen (Tylenol) 650 mg PO Q4H PRN PRN Reason: mild pain or fever Benzocaine/Menthol (Dermoplast Pain Relief [place]) 0 gm TOP ASDIRECTED PRN PRN Reason: Perineal Comfort Measure Last Admin: 12/26/19 16:46 Dose: 1 applic Docusate Sodium (Colace) 100 mg PO BID PRN PRN Reason: Constipation Ibuprofen (Motrin) 600 mg PO Q6H PRN PRN Reason: Mild pain or fever Last Admin: 12/27/19 04:10 Dose: 600 mg Witch Najma (Tucks) 1 pad TOP ASDIRECTED PRN PRN Reason: Perineal Comfort Measure Last Admin: 12/26/19 16:46 Dose: 1 applic Discontinued Medications Diphenhydramine HCl (Benadryl) 25 mg IVPUSH Q6H PRN PRN Reason: pruritis Ephedrine Sulfate (Ephedrine Sulfate) 5 mg IVPUSH ASDIRECTED PRN PRN Reason: Hypotension Fentanyl (Sublimaze) 100 mcg EPIDUR Q3H PRN PRN Reason: Pain Last Admin: 12/26/19 12:58 Dose: 100 mcg Fentanyl/Bupivacaine HCl (Fentanyl/Bupivacaine/Ns 2 Mcg-0.125% 100 Ml) 100 ml EPIDUR ASDIRECTED PRN PRN Reason: Pain Last Admin: 12/26/19 12:58 Dose: 100 ml Lactated Ringer's (Ringers, Lactated) 1,000 mls @ 40 mls/hr IV ASDIRECTED SU Last Admin: 12/26/19 13:33 Dose: 40 mls/hr Oxytocin/Lactated Ringer's (Pitocin In Lr 10 Units/1,000 Ml) 10 unit in 1,000 mls @ 12 mls/hr IV TITRATE SU; Protocol Last Titration: 12/26/19 14:02 Dose: 500 mls/hr Oxytocin/Lactated Ringer's (Pitocin In Lr 10 Units/1,000 Ml) 10 unit in 1,000 mls @ 500 mls/hr IV .CONTINUOUS SU Nalbuphine HCl (Nubain) 10 mg IVPUSH Q2H PRN PRN Reason: Pain Ondansetron HCl (Zofran) 4 mg IVPUSH Q4H PRN PRN Reason: Nausea/Vomiting Sodium Chloride (Saline Flush) 10 ml FLUSH ASDIRECTED PRN PRN Reason: Keep Vein Open - Interaction Infant Disposition, : [place] in Room with Family Infant Interaction: Holding Infant Feeding: Breastfed ; Nursed Well Support Person: - Recovery Exam Fundal Tone: Firm Fundal Level: 1 Fingerbreadths Below Umbilicus Fundal Placement: Midline Lochia Amount: Scant Lochia Color: Rubra/Red Perineum Description: Intact, Minimal Bruising/Swelling Bladder Status: Voiding Urinary Elimination: Voided - Exam General: Alert, Oriented, Cooperative GI/Abdominal Exam: Soft, Non-Tender Extremities: Normal Inspection Skin: Warm, Dry, Intact - Problem List & Annotations (1) 39 weeks gestation of SNOMED Code(s): 70786394 Code(s): Z3A.39 - 39 WEEKS GESTATION OF Status: Acute Current Visit: Yes (2) Vaginal delivery SNOMED Code(s): 346840365 Code(s): O80 - ENCOUNTER FOR FULL-TERM UNCOMPLICATED DELIVERY Status: Acute Current Visit: No - Problem List Review Problem List Initiated/Reviewed/Updated: Yes - My Orders Last 24 Hours: My Active Orders 12/26/19 10:02 Monitoring [RC] INTERMITTENT Vaginal Exam [RC] ASDIRECTED Vital Signs [RC] ASDIRECTED Vital Signs [RC] PER UNIT ROUTINE Resuscitation Status Routine 12/26/19 10:03 Heart Tones [RC] ASDIRECTED Peripheral IV Care [RC] . DIRECTED 12/26/19 15:44 Activity as Tolerated [RC] PER UNIT ROUTINE Vital Signs [RC] 03,09,15,21 Acetaminophen [Tylenol] 650 mg PO Q4H PRN Benzocaine/Menthol [Dermoplast Pain Relief [place]] See Dose Instructions TOP ASDIRECTED PRN Docusate Sodium [Colace] 100 mg PO BID PRN Ibuprofen [Motrin] 600 mg PO Q6H PRN Witch Najma [Tucks] 1 pad TOP ASDIRECTED PRN Assess Lochia [WOMSER] Per Unit Routine Assess Uterine Involution [WOMSER] Per Unit Routine Breast Pump [WOMSER] Per Unit Routine Ice Therapy [OM.PC] Per Unit Routine Perineal Care [OM.PC] Per Unit Routine Peripheral IV Discontinue [OM.PC] Routine Sitz Bath [OM.PC] Per Unit Routine 12/26/19 15:45 Heat Therapy [OM.PC] PRN 12/26/19 Dinner Regular Diet [DIET] 12/27/19 07:16 Ready for Discharge [RC] PER UNIT ROUTINE 12/27/19 15:45 Heat Therapy [OM.PC] PRN - Assessment Assessment:: 29 y/o PPD#1 from - Plan Plan:: * Routine cares * Breast feeding * Discharge home today
--- NOTE | 2019-12-27 07:19 | PCM.DCSUM1 ---
Discharge Summary - Discharge Data Discharge Date: 12/27/19 Discharge Disposition: Home, Self-Care 01 Condition: Good - Referral to Home Health Primary Care Physician: Lupe Andrews MD - Discharge Diagnosis/Problem(s) (1) 39 weeks gestation of SNOMED Code(s): 17257907 ICD Code: Z3A.39 - 39 WEEKS GESTATION OF Status: Acute Current Visit: Yes (2) Vaginal delivery SNOMED Code(s): 333603214 ICD Code: O80 - ENCOUNTER FOR FULL-TERM UNCOMPLICATED DELIVERY Status: Acute Current Visit: No - Patient Summary/Data Complications: None Consults: None Recommended Follow-up Testing/Procedures: Follow up in 3 weeks for check Hospital Course: 29 y/o at 39 1/7 wks presented for IOL. this was done with pitocin and AROM. She made good change to complete dilation and underwent an uncomplicated . See delivery note. she did well and was discharged home on PPD#1 - Patient Instructions Diet: Regular Diet as Tolerated Activity: As Tolerated Activity, Other: Pelvic rest for 6 weeks Driving: May Drive Today Showering/Bathing: May Shower Showering/Bathing, Other: May Bathe Notify Provider of: Fever, Increased Pain, Swelling and Redness, Drainage, Nausea and/or Vomiting - Discharge Plan *PRESCRIPTION DRUG MONITORING PROGRAM REVIEWED*: No *COPY OF PRESCRIPTION DRUG MONITORING REPORT IN PATIENT JAZZ: No Home Medications: Home Meds No122/Iron/Folic Acid [ Multi Tablet] 1 each PO DAILY 10/30/17 [History] Sertraline [Zoloft] 50 mg PO DAILY 06/21/19 [History] Docusate Sodium [Colace] 100 mg PO BID PRN cap 12/27/19 [Rx] Ibuprofen [Motrin] 600 mg PO Q6H PRN tablet 12/27/19 [Rx] Referrals: Lupe Andrews MD [Primary Care Provider] - (3 weeks for check ) - Discharge Summary/Plan Comment DC Time >30 min.: No - Patient Data Vitals - Most Recent: Last Vital Signs Temp 36.6 C 12/27/19 03:56 Pulse 65 12/27/19 03:56 Resp 18 12/27/19 03:56 BP 127/85 12/27/19 03:56 Pulse Ox 100 12/27/19 03:56 Weight - Most Recent: 94.211 kg I&O - Last 24 hours: Intake & Output 12/26/19 12/27/19 12/27/19 22:59 06:59 14:59 Intake Total 1000 Balance 1000 Lab Results - Last 24 hrs: Laboratory Results - last 24 hr 12/26/19 12/26/19 12/26/19 Range/Units 10:15 10:15 10:15 WBC 9.31 (3.98-10.04) K/mm3 RBC 3.92 L (3.98-5.22) M/mm3 Hgb 12.3 D (11.2-15.7) gm/dl Hct 37.5 (34.1-44.9) % MCV 95.7 H (79.4-94.8) fl MCH 31.4 (25.6-32.2) pg MCHC 32.8 (32.2-35.5) g/dl RDW Std Deviation 43.0 (36.4-46.3) fL Plt Count 250 (182-369) K/mm3 MPV 9.4 (9.4-12.3) fl RPR Non-reactive (NONREACTIVE) Blood Type O POSITIVE Gel Antibody Screen Negative Med Orders - Current: Current Medications Acetaminophen (Tylenol) 650 mg PO Q4H PRN PRN Reason: mild pain or fever Benzocaine/Menthol (Dermoplast Pain Relief [place]) 0 gm TOP ASDIRECTED PRN PRN Reason: Perineal Comfort Measure Last Admin: 12/26/19 16:46 Dose: 1 applic Docusate Sodium (Colace) 100 mg PO BID PRN PRN Reason: Constipation Ibuprofen (Motrin) 600 mg PO Q6H PRN PRN Reason: Mild pain or fever Last Admin: 12/27/19 04:10 Dose: 600 mg Witch Najma (Tucks) 1 pad TOP ASDIRECTED PRN PRN Reason: Perineal Comfort Measure Last Admin: 12/26/19 16:46 Dose: 1 applic Discontinued Medications Diphenhydramine HCl (Benadryl) 25 mg IVPUSH Q6H PRN PRN Reason: pruritis Ephedrine Sulfate (Ephedrine Sulfate) 5 mg IVPUSH ASDIRECTED PRN PRN Reason: Hypotension Fentanyl (Sublimaze) 100 mcg EPIDUR Q3H PRN PRN Reason: Pain Last Admin: 12/26/19 12:58 Dose: 100 mcg Fentanyl/Bupivacaine HCl (Fentanyl/Bupivacaine/Ns 2 Mcg-0.125% 100 Ml) 100 ml EPIDUR ASDIRECTED PRN PRN Reason: Pain Last Admin: 12/26/19 12:58 Dose: 100 ml Lactated Ringer's (Ringers, Lactated) 1,000 mls @ 40 mls/hr IV ASDIRECTED SU Last Admin: 12/26/19 13:33 Dose: 40 mls/hr Oxytocin/Lactated Ringer's (Pitocin In Lr 10 Units/1,000 Ml) 10 unit in 1,000 mls @ 12 mls/hr IV TITRATE SU; Protocol Last Titration: 12/26/19 14:02 Dose: 500 mls/hr Oxytocin/Lactated Ringer's (Pitocin In Lr 10 Units/1,000 Ml) 10 unit in 1,000 mls @ 500 mls/hr IV .CONTINUOUS SU Nalbuphine HCl (Nubain) 10 mg IVPUSH Q2H PRN PRN Reason: Pain Ondansetron HCl (Zofran) 4 mg IVPUSH Q4H PRN PRN Reason: Nausea/Vomiting Sodium Chloride (Saline Flush) 10 ml FLUSH ASDIRECTED PRN PRN Reason: Keep Vein Open
--- NOTE | 2019-12-27 07:51 | PCM48HPAN ---
Post Anesthesia Note - EVALUATION WITHIN 48HRS OF ANESTHETIC Vital Signs in Normal Range: Yes Patient Participated in Evaluation: Yes Respiratory Function Stable: Yes Airway Patent: Yes Cardiovascular Function Stable: Yes Hydration Status Stable: Yes Pain Control Satisfactory: Yes Nausea and Vomiting Control Satisfactory: Yes Mental Status Recovered: Yes Vital Signs: Last Vital Signs Temp 97.9 F 12/27/19 03:56 Pulse 65 12/27/19 03:56 Resp 18 12/27/19 03:56 BP 127/85 12/27/19 03:56 Pulse Ox 100 12/27/19 03:56
== END 2019-12-27 16:00 | disposition home or self-care (01) | DRG 560 ==
LOC: JD.OB 09:38 → OBSVTOIN 14:01 → JD.OB 14:20
PROVIDERS: ADMIT Obstetrics & Gynecology; ATTEND Obstetrics & Gynecology
PROC: 10D07Z6 Extraction of Products of Conception, Vacuum, Via Natural or Artificial Opening (ICD-10-PCS; principal; 2019-12-26)
PROC: 10907ZC Drainage of Amniotic Fluid, Therapeutic from Products of Conception, Via Natural or Artificial Opening (ICD-10-PCS; 2019-12-26)
PROC: 3E033VJ Introduction of Other Hormone into Peripheral Vein, Percutaneous Approach (ICD-10-PCS; 2019-12-26)
PROC: 3E0R3BZ Introduction of Anesthetic Agent into Spinal Canal, Percutaneous Approach (ICD-10-PCS; 2019-12-26)
PROC: 00HU33Z Insertion of Infusion Device into Spinal Canal, Percutaneous Approach (ICD-10-PCS; 2019-12-26)
DX: O99.344 Other mental disorders complicating childbirth (principal); F32.9 Major depressive disorder, single episode, unspecified; Z3A.39 39 weeks gestation of pregnancy; Z37.0 Single live birth
CPT/HCPCS: 36415; 51701; 59025; 59409; 85027; 86592; 86850; 86900; 86901; A9270-GY; J2590; J3010; J3490; J7120

== ENCOUNTER 2023-05-05 18:04 | Inpatient (IN) | payer BC ==
[2023-05-05] MEDS ORDERED: Citric Acid/Sodium Citrate Solution 30 ML Cup PO ONE ×2 (19:13→19:17)
[2023-05-05] MEDS ORDERED: Sodium Chloride 0.9% 10 ML Syringe FLUSH PRN ×2 (19:13→19:17)
[2023-05-05] MEDS ORDERED: Metoclopramide 10 MG/2 ML SDV IVPUSH ONE ×2 (19:13→19:17)
[2023-05-05] MEDS ORDERED: Lactated Ringers 1,000 ML IV SCH ×2 (19:15→19:30)
[2023-05-05] MEDS ORDERED: ceFAZolin 2 GM in Sodium Chloride 0.9% 50 ML IV ONE (19:17)
[2023-05-05] MEDS ORDERED: Oxytocin/Lactated Ringers 10 UNIT/1,000 ML BAG IV SCH (19:30)
[2023-05-05 19:33] LABS: BASOPHILS ABSOLUTE AUTO 0.02 K/mm3 (0.01-0.08); BASOPHILS PERCENT AUTO 0.2 % (0.1-1.2); EOSINOPHILS ABSOLUTE AUTO 0.02 K/mm3 (0.04-0.36); EOSINOPHILS PERCENT AUTO 0.2 (0.7-5.8); HEMATOCRIT 37.1 % (34.1-44.9); HEMOGLOBIN 12.3 gm/dl (11.2-15.7); IMMATURE GRAN ABSOLUTE AUTO 0.04 K/mm3 (0.00-0.10); IMMATURE GRAN PERCENT AUTO 0.4 % (<=1.0); LYMPHOCYTES ABSOLUTE AUTO 2.14 K/mm3 (1.18-3.74); MEAN CORPUSCULAR HEMOGLOBIN 31.8 pg (25.6-32.2); MEAN CORPUSCULAR HGB CONC 33.2 g/dl (32.2-35.5); MEAN CORPUSCULAR VOLUME 95.9 fl (79.4-94.8); MONOCYTES ABSOLUTE AUTO 0.74 K/mm3 (0.24-0.36); MONOCYTES PERCENT AUTO 6.9 % (4.7-12.5); NEUTROPHILS ABSOLUTE AUTO 7.72 K/mm3 (1.56-6.13); NEUTROPHILS PERCENT AUTO 72.3 % (34.0-71.1); PLATELET COUNT,PLT 244 K/mm3 (182-369); RED BLOOD CELL COUNT 3.87 M/mm3 (3.98-5.22); WHITE BLOOD CELL COUNT,WBC 10.68 K/mm3 (3.98-10.04)
[2023-05-05 19:51] LABS: CREATININE 0.9 mg/dL (0.55-1.02); EST CRCL DRUG DOSING (CG) 103.56 mL/min
[2023-05-05] MEDS ORDERED: Morphine PF 1 MG/ML Amp ONE (20:32)
[2023-05-05] MEDS ORDERED: Ondansetron 4 MG/2 ML SDV ONE (20:32)
[2023-05-05] MEDS ORDERED: Phenylephrine 1% 10 MG/ML SDV ONE (20:32)
[2023-05-05] MEDS ORDERED: Oxytocin 10 Units/1 ML SDV ONE ×3 (20:32)
[2023-05-05] MEDS ORDERED: ceFAZolin 2 GM Vial ONE (21:00)
[2023-05-05] MEDS ORDERED: Sodium Chloride 0.9% 10 ML Syringe FLUSH SCH ×2 (21:00)
[2023-05-05] MEDS ORDERED: diphenhydrAMINE 50 MG/ML SDV IVPUSH PRN ×2 (21:56→23:26)
[2023-05-05] MEDS ORDERED: Meperidine 50 MG/ML Vial IVPUSH PRN (21:56)
[2023-05-05] MEDS ORDERED: Ketorolac 30 MG/ML SDV IVPUSH ONE (21:56)
[2023-05-05] MEDS ORDERED: Ondansetron 4 MG/2 ML SDV IVPUSH PRN (21:56)
[2023-05-05] MEDS ORDERED: fentaNYL 100 MCG/2 ML SDV IVPUSH PRN (21:56)
[2023-05-05] MEDS ORDERED: ePHEDrine 50 MG/ML SDV IVPUSH PRN (23:26)
[2023-05-05] MEDS ORDERED: Dextrose 5%-Lactated Ringers 1,000 ML IV SCH (23:26)
[2023-05-05] MEDS ORDERED: Ondansetron 4 MG/2 ML SDV IV PRN (23:26)
[2023-05-05] MEDS ORDERED: Naloxone 0.4 MG/ML SDV IVPUSH PRN (23:26)
[2023-05-06] MEDS: Acetaminophen/oxyCODONE 325-5 MG Tab PO PRN ×4 (01:12→18:06)
[2023-05-06] MEDS: Ketorolac 30 MG/ML SDV IVPUSH SCH ×3 (03:29→15:56)
[2023-05-06 04:52] LABS: CREATININE,URINE RAND 250.5 mg/dL (30.0-125.0); PROTEIN CREATININE RATIO,URINE 161.3 mg/g (0-149); PROTEIN,URINE RANDOM 40.4 mg/dL (0.0-11.8)
[2023-05-06] MEDS ORDERED: Non-Formulary Medication 1 Each (Sertraline [Zoloft] 50 MG Tablet) PO SCH (09:00)
[2023-05-06 16:15] LABS: HEMATOCRIT 29.7 % (34.1-44.9); MEAN CORPUSCULAR HEMOGLOBIN 31.9 pg (25.6-32.2); MEAN CORPUSCULAR HGB CONC 32.7 g/dl (32.2-35.5); MEAN CORPUSCULAR VOLUME 97.7 fl (79.4-94.8); MEAN PLATELET VOLUME 9.6 fl (9.4-12.3); PLATELET COUNT,PLT 184 K/mm3 (182-369); RED BLOOD CELL COUNT 3.04 M/mm3 (3.98-5.22); WHITE BLOOD CELL COUNT,WBC 10.82 K/mm3 (3.98-10.04)
[2023-05-06 16:18] LABS: HEMOGLOBIN 9.7 gm/dl (11.2-15.7)
[2023-05-06] MEDS ORDERED: Ibuprofen 600 MG Tab PO PRN (22:00)
[2023-05-07] MEDS: Acetaminophen/oxyCODONE 325-5 MG Tab PO PRN ×5 (03:28→20:09)
[2023-05-08] MEDS: Acetaminophen/oxyCODONE 325-5 MG Tab PO PRN ×2 (03:19→08:09)
== END 2023-05-08 12:26 | disposition home or self-care (01) | DRG 540 ==
LOC: JD.OBCHECK 18:04 → JD.OB 18:07 → JD.OBCHECK 19:12 → JD.OB 19:13
PROVIDERS: ADMIT Obstetrics & Gynecology; ATTEND Obstetrics & Gynecology
PROC: 10D00Z1 Extraction of Products of Conception, Low, Open Approach (ICD-10-PCS; principal; 2023-05-05)
DX: O42.02 Full-term premature rupture of membranes, onset of labor within 24 hours of rupture (principal); O13.4 Gestational [pregnancy-induced] hypertension without significant proteinuria, complicating childbirth; O32.1XX0 Maternal care for breech presentation, not applicable or unspecified; Z3A.36 36 weeks gestation of pregnancy; Z37.0 Single live birth
CPT/HCPCS: 01961; 36415; 59025; 82565; 82570; 84112; 84156; 84450; 84460; 85025; 85027; 86592; 86850; 86900; 86901; 94762; A9270-GY; J0690; J1885; J2274; J2370; J2405; J2590; J2765; J3490; J7120; J7121